=== PATIENT | male | born 1955 | race Caucasian/White ===

== ENCOUNTER 2018-08-27 16:24 | Emergency (ER) | payer MEDICAID ==
[~2018-08-27] VITALS: Ht 152.4 cm; Wt 79.5 kg
[~2018-08-27 16:24] MED LIST: ACET-784 PO
[2018-08-27] MEDS ORDERED: ASCO500 PO (16:31)
[2018-08-27] MEDS ORDERED: ACETAMINOPHEN 325 MG TABLET PO ONE (18:15)
[2018-08-27] MEDS ORDERED: BACITRACIN 0.9 GM PACKET OINTMENT TP ONE (18:15)
[2018-08-27] MEDS ORDERED: LIDOCAINE/PF 1% 5 ML VIAL INJ ONE (18:15)
[2018-08-27 19:34] VITALS: BP 121/84
== END 2018-08-27 19:50 | disposition home or self-care (01) ==
LOC: EMS 16:25
DX: S61.213A Laceration without foreign body of left middle finger without damage to nail, initial encounter (principal); R55 Syncope and collapse; Z79.899 Other long term (current) drug therapy; W26.0XXA Contact with knife, initial encounter; Y93.G1 Activity, food preparation and clean up; Y92.098 Other place in other non-institutional residence as the place of occurrence of the external cause; Y99.8 Other external cause status
CPT/HCPCS: 12002; 73130; 99284; J3490